=== PATIENT | female | born 1965 | race Caucasian/White ===

== ENCOUNTER 2020-11-06 14:16 | Emergency (ER) | payer OTHER ==
[~2020-11-06] VITALS: Ht 160 cm; Wt 131.0 kg
[2020-11-06 15:31] LABS: BASO % 1 % (0-3); EOS # 0.1 x10^3/uL (0.0-0.7); EOS % 1 % (0-3); HEMATOCRIT 39.1 % (36.0-47.0); HEMOGLOBIN 12.8 g/dL (12.0-15.5); LYMPH # 1.6 x10^3/uL (1.0-4.8); LYMPH % 18 % (24-48); MEAN CORPUSCULAR HEMOGLOBIN 28 pg (25-35); MEAN CORPUSCULAR HGB CONC 33 g/dL (31-37); MEAN CORPUSCULAR VOLUME 85 fL (79-100); MONO # 0.6 x10^3/uL (0.0-1.1); MONO % 7 % (0-9); NEUT # 6.2 x10^3/uL (1.8-7.7); NEUT % 73 % (31-73); PLATELET COUNT 221 x10^3/uL (140-400); RED CELL DISTRIBUTION WIDTH 14.9 % (11.5-14.5); WHITE BLOOD COUNT 8.5 x10^3/uL (4.0-11.0)
[2020-11-06 15:48] LABS: CALCIUM 9.3 mg/dL (8.5-10.1); CREATININE 0.8 mg/dL (0.6-1.0)
[2020-11-06] MEDS ORDERED: IV NORMAL SALINE 1000ML BAG 1,000 ML IV ONE (16:00)
[2020-11-06] MEDS ORDERED: IOHEXOL 300 MG/ML 100ML VIAL. IV ONE (16:00)
[2020-11-06] MEDS ORDERED: methylPREDNISolone SOD SUCC PF 125 MG/2 ML VIAL. IV ONE (16:00)
[2020-11-06] MEDS ORDERED: diphenhydrAMINE 50 MG/ML VIAL IVP ONE (16:00)
[2020-11-06] MEDS ORDERED: PROCHLORPERAZINE 10 MG/2 ML VIAL. IV ONE (16:00)
[2020-11-06] MEDS ORDERED: CONTRAST GIVEN. MC PRN (16:00)
[2020-11-06] MEDS ORDERED: diphenhydrAMINE 50 MG/ML VIAL ONE (16:02)
--- NOTE | 2020-11-06 17:12 | RAD ---
CTA head and CTA neck with contrast History: Headache Technique: Axial helical images were obtained of the head and neck after the intravenous administrati on of 75 mL of Omni 350 IV contrast. Multiplanar reconstruction was performed on an independent work station including MIP imaging and 3D angiographic imaging. Comparison: none CTA head with contrast. Findings: Brain: The angel and white matter appears symmetrical. There is no mass effect, extra-axial fluid co llections or hydrocephalus. There is no gross bleed. This study lacks sensitivity for possible small bleeds due to the presence of contrast. Distal carotid arteries: normal caliber Vertebral basilar system normal Major cerebral arteries: normal Impression: no acute findings end impression CTA neck with contrast: Findings: Aortic arch and origin of great vessels: normal Common carotid arteries: Right: normal Left: normal Internal carotid arteries: Right: normal Left: normal Vertebral basilar system normal History the normal cervical lordosis could be positional or could be secondary muscle spasm. There is a 3.4 cm x 3.4 cm hypoattenuating mass in the right lobe of the thyroid with irregular margins. Impression: 1. No significant stenosis. 2. Mass in the right lobe of the thyroid. Consider follow-up ultrasound evaluation and possible ultra sound-guided fine-needle aspiration. End impression PQRS Compliance Statement - Stenosis calculations for CT, MR and conventional angiography are based u lula measurement of the distal ICA diameter in accordance with the NASCET methodology. Stenosis calcu lations for carotid ultrasound studies are derived from validated velocity criteria which are known t o correlate with the NASCET methodology. PQRS Compliance Statement: One or more of the following individualized dose reduction techniques were utilized for this examinat ion: 1. Automated exposure control 2. Adjustment of the mA and/or kV according to patient size 3. Use of iterative reconstruction technique Electronically signed by: Lionel Bautista III, MD (11/06/2020 5:10 PM) [facility]
--- NOTE | 2020-11-06 17:15 | ED.ADGEN ---
Past Medical History Past Medical History: Asthma, Diabetes-Type II, Hypertension Past Surgical History: Hysterectomy Smoking Status: Never Smoker Alcohol Use: None General Adult EDM: Chief Complaint: HEADACHE HPI: HPI: Patient is a 55 year old female who presents emergency department with complaints of a headache that starts in the back of her head and proceeds to the front of her head since about 6:00 this morning. She states that light is bothering her eyes but she denies any loss of vision or blurred vision. She denies any nausea, vomiting, numbness, tingling, weakness. Patient denies any history of migraines. She reports that her mother had a history of a brain aneurysm. Patient states that she recently had a scan of a thyroid mass that she is having evaluated by another provider. Patient reports that she took some ibuprofen around 730 this morning the headache resolved for short period of time but came back again at noon today. She currently rates her headache a 10 out of 10 on the pain scale, she has not taken anything since taking ibuprofen earlier. She denies any exacerbating factors. The patient reports a history of hypertension that she takes lisinopril for. She denies missing any doses of her lisinopril today. Review of Systems: Review of Systems: Complete ROS is negative unless otherwise noted in HPI. Current Medications: Current Medications Medications (Trade) Dose Ordered Sig/Pet[place] Start Time Stop Time Status Last Admin Dose Admin Diphenhydramine HCl (Benadryl) 50 mg STK-MED ONCE 11/06/20 16:02 11/06/20 16:02 DC Info (CONTRAST GIVEN -- Rx MONITORING) 1 each PRN DAILY PRN 11/06/20 16:00 11/08/20 15:59 Iohexol (Omnipaque 300 Mg/ml) 75 ml 1X ONCE 11/06/20 16:00 11/06/20 16:01 DC 11/06/20 16:24 75 ML Ketorolac Tromethamine (Toradol 30mg Vial) 30 mg 1X ONCE 11/06/20 17:45 11/06/20 17:46 DC 11/06/20 17:38 30 MG Methylprednisolone Sodium Succinate (SOLU-Medrol 125MG VIAL) 125 mg 1X ONCE 11/06/20 16:00 11/06/20 16:02 DC 11/06/20 16:28 125 MG Orphenadrine Citrate (Norflex) 60 mg 1X ONCE 11/06/20 17:45 11/06/20 17:46 DC 11/06/20 17:38 60 MG Prochlorperazine Edisylate (Compazine) 10 mg 1X ONCE 11/06/20 16:00 11/06/20 16:02 DC 11/06/20 16:28 10 MG Sodium Chloride 1,000 ml @ 1,000 mls/hr 1X ONCE 11/06/20 16:00 11/06/20 16:59 DC 11/06/20 16:29 1,000 MLS/HR Allergies: Allergies: Allergies Coded Allergies Type Severity Reaction Last Updated Verified ciprofloxacin Allergy Intermediate sob, palpitations 11/06/20 Yes codeine Allergy Intermediate sob, palpitations 11/06/20 Yes Iodine and Iodide Containing Produc Allergy Mild hives 11/06/20 Yes Physical Exam: PE: See Above Constitutional: Well developed, well nourished, no acute distress, non-toxic appearance, obese. [] HENT: Normocephalic, atraumatic, bilateral external ears normal, nose normal. [] Eyes: PERRLA, EOMI, conjunctiva normal, no discharge. [] Neck: Normal range of motion, no stridor. [] Cardiovascular:Heart rate regular rhythm Lungs & Thorax: Respirations even and unlabored, no retractions, no respiratory distress Skin: Warm, dry, no erythema, no rash. [] Extremities: No cyanosis, ROM intact, no edema. [] Neurologic: Alert and oriented X 3, no focal deficits noted. [] Psychologic: Affect normal, judgement normal, mood normal. [] Current Patient Data: Labs: Laboratory Tests Test 11/06/20 15:24 White Blood Count 8.5 x10^3/uL (4.0-11.0) Red Blood Count 4.60 x10^6/uL (3.50-5.40) Hemoglobin 12.8 g/dL (12.0-15.5) Hematocrit 39.1 % (36.0-47.0) Mean Corpuscular Volume 85 fL (79-100) Mean Corpuscular Hemoglobin 28 pg (25-35) Mean Corpuscular Hemoglobin Concent 33 g/dL (31-37) Red Cell Distribution Width 14.9 % (11.5-14.5) H Platelet Count 221 x10^3/uL (140-400) Neutrophils (%) (Auto) 73 % (31-73) Lymphocytes (%) (Auto) 18 % (24-48) L Monocytes (%) (Auto) 7 % (0-9) Eosinophils (%) (Auto) 1 % (0-3) Basophils (%) (Auto) 1 % (0-3) Neutrophils # (Auto) 6.2 x10^3/uL (1.8-7.7) Lymphocytes # (Auto) 1.6 x10^3/uL (1.0-4.8) Monocytes # (Auto) 0.6 x10^3/uL (0.0-1.1) Eosinophils # (Auto) 0.1 x10^3/uL (0.0-0.7) Basophils # (Auto) 0.0 x10^3/uL (0.0-0.2) Sodium Level 141 mmol/L (136-145) Potassium Level 5.0 mmol/L (3.5-5.1) Chloride Level 105 mmol/L (98-107) Carbon Dioxide Level 27 mmol/L (21-32) Anion Gap 9 (6-14) Blood Urea Nitrogen 21 mg/dL (7-20) H Creatinine 0.8 mg/dL (0.6-1.0) Estimated GFR (Cockcroft-Gault) 75.0 Glucose Level 143 mg/dL (70-99) H Calcium Level 9.3 mg/dL (8.5-10.1) Laboratory Tests 11/06/20 15:24 Laboratory Tests 11/06/20 15:24 Vital Signs: Vital Signs Date Time Temp Pulse Resp B/P (MAP) Pulse Ox O2 Delivery O2 Flow Rate FiO2 11/06/20 17:26 64 18 99 11/06/20 14:35 98.7 126/62 (83) Room Air 98.7 EKG: EKG: [] Heart Score: Risk Factors: Risk Factors: DM, Current or recent (<one month) smoker, HTN, HLP, family history of CAD, obesity. Risk Scores: Score 0 - 3: 2.5% MACE over next 6 weeks - Discharge Home Score 4 - 6: 20.3% MACE over next 6 weeks - Admit for Clinical Observation Score 7 - 10: 72.7% MACE over next 6 weeks - Early Invasive Strategies Radiology/Procedures: Radiology/Procedures: PROCEDURE: CT ANGIOGRAPHY HEAD AND NECK CTA head and CTA neck with contrast History: Headache Technique: Axial helical images were obtained of the head and neck after the intravenous administration of 75 mL of Omni 350 IV contrast. Multiplanar reconstruction was performed on an independent work station including MIP imaging and 3D angiographic imaging. Comparison: none CTA head with contrast. Findings: Brain: The angel and white matter appears symmetrical. There is no mass effect, extra-axial fluid collections or hydrocephalus. There is no gross bleed. This study lacks sensitivity for possible small bleeds due to the presence of contrast. Distal carotid arteries: normal caliber Vertebral basilar system normal Major cerebral arteries: normal Impression: no acute findings end impression CTA neck with contrast: Findings: Aortic arch and origin of great vessels: normal Common carotid arteries: Right: normal Left: normal Internal carotid arteries: Right: normal Left: normal Vertebral basilar system normal History the normal cervical lordosis could be positional or could be secondary muscle spasm. There is a 3.4 cm x 3.4 cm hypoattenuating mass in the right lobe of the thyroid with irregular margins. Impression: 1. No significant stenosis. 2. Mass in the right lobe of the thyroid. Consider follow-up ultrasound evaluation and possible ultrasound-guided fine-needle aspiration.[] Course & Med Decision Making: Course & Med Decision Making Pertinent Labs and Imaging studies reviewed. (See chart for details) 55-year-old female presents emergency room with complaints of severe headache that began at 6:00 this morning. Work-up included CTA of the head and neck, labs, and IV medications. CTA was negative for any acute findings. CBC was unremarkable; BMP revealed a BUN of 21, glucose of 143 otherwise unremarkable. Patient was given a liter of normal saline, 125 mg of Medrol, 50 mg of Benadryl, and 10 mg of Compazine, she reported some relief of her headache. 30 mg of IV Toradol and 60 mg of IM Norflex was ordered. The patient reported feeling better after these medications. Prescription written for Fioricet. I encouraged the patient to follow-up with her primary care doctor in the next 1 to 2 days for repeat evaluation, return to the ER symptoms worsen. Patient verbalized an understanding of home care, medications, follow-up, and return to ED instructions and was in agreement with the plan of care. [] Dragon Disclaimer: Myrtle Disclaimer: This electronic medical record was generated, in whole or in part, using a voice recognition dictation system. Departure Departure Impression: Primary Impression: Headache Disposition: 01 DC HOME SELF CARE/HOMELESS Condition: STABLE Referrals: UNKNOWN PCP NAME (PCP) Patient Instructions: General Headache Without Cause, [id number] Additional Instructions: Fill the prescription and take as directed. Follow-up with your primary care doctor in 1 to 2 days for repeat evaluation, also recommend a eye examination if you have not had one in the last year. Return to the ER if symptoms worsen. Scripts Butalb/Acetaminophen/Caffeine ([id number] 50-325-40) 1 Each Tablet 1-2 EACH PO Q4HRS PRN for PAIN MDD 6 tabs for 3 Days, #18 TAB 0 Refills Prov: NATACHA WALLER [employer] 11/06/20 Problem Qualifiers Primary Impression: Headache Headache type: unspecified Headache chronicity pattern: acute headache Intractability: not intractable Qualified Codes: R51.9 - Headache, unspecified NATACHA WALLER [employer] Nov 06, 2020 17:15
[2020-11-06] MEDS ORDERED: ORPHENADRINE CITRATE 60 MG/2 ML VIAL. IM ONE (17:45)
[2020-11-06] MEDS ORDERED: KETOROLAC 30 MG/ML VIAL. IV ONE (17:45)
[2020-11-06 18:26] VITALS: BP 118/65
[2020-11-06] MEDS ORDERED: BUTA1TAB23 PO (18:37)
== END 2020-11-06 19:00 | disposition home or self-care (01) ==
LOC: ER 14:16
DX: R51.9 Headache, unspecified (principal); J45.909 Unspecified asthma, uncomplicated; E11.9 Type 2 diabetes mellitus without complications; I10 Essential (primary) hypertension; Z90.710 Acquired absence of both cervix and uterus; Z88.1 Allergy status to other antibiotic agents; Z88.5 Allergy status to narcotic agent; Z91.041 Radiographic dye allergy status
CPT/HCPCS: 36415; 70496; 70498; 80048; 85025; 96361; 96372; 96374; 96375; 99285; J0780; J1200; J1885; J2360; J2930; J7030; Q9967; 99284-25